=== PATIENT | male | born 1930 | race Hispanic/Latino ===

== ENCOUNTER 2016-08-24 11:34 | Inpatient (IN) | payer MEDICARE ==
--- OUTSIDE RECORDS SUMMARY | 2016-08-24 12:07 | XMS REPORT | Continuity of Care Document ---
:1930 Author Organization [facility] ([facility]) Address [address] [place] [address] Phone [phone] Care Team Providers Name Role Phone Unavailable Primary Care Provider Unavailable Source Comments This disclosure is being made pursuant to the Care Everywhere program, applicable federal and state laws, and may not contain all informaitonavailable regarding this patient.[facility] ([facility]) Active Allergies and Adverse Reactions Allergen Noted Date Severity Reactions Comments Cephalosporins Respiratory Distress Current Medications Not on file Active Problems Not on file Social History Tobacco Use Types Packs/Day Years Used Date Never Assessed Last Filed Vital Signs Vital Sign Reading Time Taken Blood Pressure - - Pulse - - Temperature - - Respiratory Rate - - Height - - Weight 77.497 kg (170 lb 13.6 oz) 06/06/1999 2:59 PM [employer]LECT[employer]ER Body Mass Index - - Oxygen Saturation - - Plan of Care Health Maintenance Due Date Last Done Comments Hepatitis B Vaccine (1 of 3 - Primary 1929 Series) Tdap Vaccine 1940 Td Vaccine 09/13/1947 Zoster Vaccine 1989 Pneumococcal Vaccine (1 of 2 - PCV13) 1994 Lipid Disorder Screening 11/10/2003 11/09/1998, 09/21/1998 Influenza Vaccine: Seasonal (#1) 10/29/2015 Results from Last 3 Months Not on file
--- NOTE | 2016-08-24 12:09 | ERNOTE ---
Medical Problem HPI - General Chief Complaint: General Assessment Time Seen by Provider: 08/24/16 11:56 Source: patient Exam Limitations: no limitations - Immun/Allergies/Home Medications Immunizations: IMMUNIZATION HX Immunizations Up to Date Yes History of Influenza Vaccine No Hx Pneumococcal Vaccination No Allergies/Adverse Reactions: Allergies Cephalosporins Allergy (Severe, Verified 08/24/16 11:46) Anaphylaxis Penicillins Allergy (Severe, Verified 08/24/16 11:46) Anaphylaxis Home Medications: HOME MEDICATIONS metFORMIN HCL [Metformin HCl ER] 1,000 mg PO DAILY 08/24/16 [Last Taken Unknown] - History of Present History Narrative: Patient states that for about three days both his testicles have been swollen and tender. He denies any injury. He denies any acute urinary symptoms, has some chronic in creased frequency and dysuria, never had similar symptoms Review of Systems - Review of Systems Constitutional: Absent: recent illness, fever Respiratory: Absent: shortness of breath Cardiology: Absent: chest pain Gastrointestinal/Abdominal: Absent: nausea, vomiting, abdominal pain Genitourinary: Present: See HPI Musculoskeletal: Absent: back pain Neurological: Absent: headache - Patient's Past Medical History Patient History - Medical: Diabetes Type 2 Patient History - Cardiac/Respiratory: No pertinent hx Patient History - Cancer: No Hx of Cancer Patient History - Surgical Procedures: Hernia Repair Patient History - Other: None - Social History Living Situations: home Abuse History: No History of abuse Psych History: No pertinent hx Smoking Status: Former smoker Alcohol Use: heavy Drug Use: none - Immunizations Immunizations Up to Date: Yes Hx Pneumococcal Vaccination: No History of Influenza Vaccine: No Physical Exam - Physical Exam General Appearance: Present: wd/wn, alert, no apparent distress Respiratory: Present: no respiratory distress, normal breath sounds, no accessory muscle use, lungs clear Cardiovascular/Chest: Present: regular rate, rhythm, no murmur Gastrointestinal/Abdominal: Present: nontender, nondistended, soft Male Genitals Exam: Present: scrotum tenderness (R), scrotum tenderness (L), other - bilateral testicles and epididymis erythemaous, enlarged and tender, no skin changes (except erythema), no inguinal lymphnodes Back Exam: Present: no CVA tenderness Neurological Exam: Present: alert, oriented, normal mood/affect Skin Exam: Present: normal color, warm/dry ED Progress - Results and Orders Patient's Lab Results:: I have reviewed the patient's lab results. - Vital Signs Patient's Vital Signs:: I have reviewed the patient's vital signs. Vital Signs: Vital Signs 08/24/16 11:41 Temperature 37.6 C H Pulse Rate 103 H Respiratory 16 Rate Blood Pressure 141/73 O2 Sat by Pulse 98 Oximetry - CT/Ultrasound CT/Ultrasound Narrative: testicular U/S: Impression: No intratesticular mass. No evidence of torsion. No discrete evidence of epididymoorchitis. Suggestion of scrotal swelling with increased vascular flow. Findings could be secondary to underlying infection or inflammation. No obvious subcutaneous emphysema. - Progress/Reassessment Chief Complaint: General Assessment Progress Note-Subjective: 08/24/16 12:20 discussed pain medication, patient only wants to take tylenol at this point 08/24/16 14:15 discussed results with patient and son, patient states that he is very comfortable after taking tylenol, still problems with sitting down 08/24/16 14:16 discussed with nuris Ross to admit for observation Departure - Departure Clinical Impression: Orchitis [facility] Condition: Good Referrals: Willie Rios MD [Primary Care Provider] -
[2016-08-24 12:18] LABS: Hemoglobin 14.1 gm/dL (13.5-18.0); Mean Cell Volume 88.2 fl (78-100); Mean Corpuscular Hemoglobin 30.3 pg (27-31); Mean Corpuscular Hgb Conc 34.4 g/dl (32-36); Mean Platelet Volume 10.4 fl (6.0-9.5); Neutrophil % 75.1 % (42-75.0); Platelet Count 215 K/mm3 (150-450); Red Blood Count 4.65 M/mm3 (4.7-6.0); White Blood Count 13.3 K/mm3 (4.0-10.5)
[2016-08-24] MEDS ORDERED: ACETAMINOPHEN 325 MG TABLET ONE (12:24)
[2016-08-24] MEDS ORDERED: ACETAMINOPHEN 325 MG TABLET PO ONE (12:24)
[2016-08-24 12:25] LABS: Urine Appearance Cloudy; Urine Bilirubin Negative (NEGATIVE); Urine Color Yellow; Urine Ketone Negative (NEGATIVE)
[2016-08-24 12:26] LABS: Urine Blood 10 /ul (NEGATIVE); Urine Nitrite Positive (NEGATIVE); Urine Protein 30 mg/dL (NEGATIVE); Urine Urobilinogen Normal (NORMAL)
[2016-08-24 12:27] LABS: Urine Bacteria 4+; Urine RBC 0-5 /hpf (0-5); Urine WBC >50 /hpf (0-5)
[2016-08-24 12:30] LABS: Albumin * 3.3 gm/dl (3.4-5.0); Anion Gap 15.4 mmol/L (6.8-13.8); BUN/Creatinine Ratio 15.3 (9.0-21.6); Bilirubin, Total 0.7 mg/dL (0.0-1.1); Ca. Corrected For Albumin 9.2 mg/dL (8.4-10.2); Carbon Dioxide 24.4 mmol/L (24-32.6); Potassium 3.8 mmol/L (3.4-4.6); Total Protein 7.4 gm/dL (6.2-8.2)
[2016-08-24 12:32] LABS: CRP 13.4 mg/dL (0.0-0.9)
[2016-08-24] MEDS ORDERED: LEVOFLOXACIN/D5W 500 MG/100 ML BAG IV SCH (12:45)
--- OUTSIDE RECORDS SUMMARY | 2016-08-24 14:32 | XMS REPORT | Continuity of Care Document ---
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
[2016-08-24] MEDS ORDERED: MORPHINE SULFATE 2 MG/ML DISP.SYRIN IV PRN (14:35)
[2016-08-24] MEDS ORDERED: ONDANSETRON HCL/PF 2 MG/ML VIAL IV PRN (14:35)
[2016-08-24] MEDS ORDERED: oxyCODONE HCL/ACETAMINOPHEN 1 TAB TABLET PO PRN (14:35)
[2016-08-24] MEDS ORDERED: ACETAMINOPHEN 500 MG TABLET PO PRN (14:35)
[2016-08-24 15:18] LABS: INR 0.96 INR (0.90-1.10); Partial Thrombolplastin Time 30.1 Seconds (24-32)
[2016-08-24] MEDS ORDERED: LEVOFLOXACIN/D5W 250 MG/50 ML BAG IV ONE (15:30)
[2016-08-24] MEDS ORDERED: IBUPROFEN 600 MG TABLET PO PRN (15:56)
[2016-08-24] MEDS ORDERED: MULTIVIT INFUSN,ADULT 4,VIT K 10 ML, THIAMINE HCL 100 MG in NORMAL SALINE 1,000 ML IV ONE (16:04)
[2016-08-24] MEDS ORDERED: LORazepam 2 MG/ML DISP.SYRIN IV PRN ×3 (16:04)
[2016-08-24] MEDS: FOLIC ACID 1 MG TABLET PO SCH (16:22)
[2016-08-24] MEDS: THIAMINE HCL 100 MG TABLET PO SCH (16:22)
--- NOTE | 2016-08-24 16:39 | HP ---
Chief Complaint - Chief Complaint Date of Service: 08/24/16 Time of Service: 15:15 Chief Complaint: scrotal pain History of Present Illness: Phuc is an 85 year old patient of Dr. Rios with a PMH of DM, HTN and etoh abuse who presented to the ER with c/o scrotal pain and swelling for 3 days. denies recent URI. denies headache. no recent travel out of the country. believes he is up to date on his vaccines. fever 37.6. wbc elevated at 14.1 with 75.1 neutrophils. bmp unremarkable except glucose elevated at 223. UA positive for protein, glucose, nitrate, 500 leuk esterase, >50 wbc with +4 bacteria. crp elevated at 13.4. scrotal US significant for mod rt and sm lt hydroceles, bilat varioceles, scrotal swelling, no abscess, no subcutaneous emphysema, no torsion, no epididymoorchitis. Patient admitted for UTI and scrotal pain / swelling. Further evaluation revealed normal lactic acid, normal procalcitonin. ESR significantly elevated at 62. PT/PTT wnl. - Patient's Past Medical History Patient History - Medical: Diabetes Type 2 Patient History - Cardiac/Respiratory: Hypertension Patient History - Cancer: No Hx of Cancer Patient History - Surgical Procedures: Hernia Repair Patient History - Other: None - Social History Living Situations: home Abuse History: No History of abuse Psych History: No pertinent hx Smoking Status: Former smoker Have you smoked in the past 12 months: No Alcohol Use: heavy Drug Use: none - Immunizations Immunizations Up to Date: Yes Hx Pneumococcal Vaccination: No History of Influenza Vaccine: No Review Of Systems (GEN) - Review of Systems Generalized/Overall Review: Present: Fever, Malaise EENTM: Present: No Symptoms Reported Respiratory: Present: No Symptoms Reported Cardiac: Present: No Symptoms Reported Abdominal: Present: No Symptoms Reported Genitourinary: Present: Burning, Urgency, Frequency, Dribbling, Dysuria, Other - scrotal swelling Musculoskeletal: Present: No Symptoms Reported Neurological: Present: No Symptoms Reported Skin: Present: No Symptoms Reported Endocrine: Present: No Symptoms Reported Misc: All systems neg except as marked Immunizations: IMMUNIZATION HX Immunizations Up to Date Yes History of Influenza Vaccine No Hx Pneumococcal Vaccination No Allergies/Adverse Reactions: Allergies Allergy/AdvReac Type Severity Reaction Status Date / Time Cephalosporins Allergy Severe Anaphylaxis Verified 08/24/16 11:46 Penicillins Allergy Severe Anaphylaxis Verified 08/24/16 11:46 Home Medications: HOME MEDICATIONS Aspirin [Aspirin Enteric Coated] 81 mg PO DAILY 08/24/16 [Last Taken Unknown] Lisinopril [Zestril] 20 mg PO DAILY 08/24/16 [Last Taken Unknown] Simvastatin [Zocor] 10 mg PO HS 08/24/16 [Last Taken Unknown] metFORMIN HCL [Glucophage] 1,000 mg PO BIDWM 08/24/16 [Last Taken Unknown] Exam - Exam Vital Signs: Vital Signs - Last Taken Temp 36.2 C L 08/24/16 14:35 Pulse 84 08/24/16 14:35 Resp 16 08/24/16 14:35 BP 152/78 08/24/16 14:35 Pulse Ox 99 08/24/16 14:35 Constitutional: Present: Alert, Cooperative, No distress ENT Exam: Present: hearing grossly normal, other - no parotid swelling noted Eye Exam: bilateral eye: normal inspection Neck: Present: full range of motion, supple Back Exam: Present: normal inspection, no vertebral tenderness Breasts: Present: Exam deferred Respiratory: Present: lungs clear, normal breath sounds, no respiratory distress , no accessory muscle use Cardiovascular/Chest: Present: regular rate, rhythm - with occasional premature beat heard, no chest tenderness Peripheral Pulses: carotid (R): 2+, carotid (L): 2+, dorsalis-pedis (R): 0 - this is a chronic finding, dorsalis-pedis (L): 0 - this is a chronic finding, radial (R): 2+, radial (L): 2+ Abdomen: Present: Normal bowel sounds, soft, nontender, nondistended Extremity: Present: normal range of motion, non-tender, normal inspection Skin Exam: Present: normal color, warm/dry, no cyanosis Diagnostic Studies: Abnormal Lab Results 08/24/16 Range/Units 15:00 ESR 62 H (0-10) mm/hr Laboratory Results WBC 13.3 K/mm3 (4.0-10.5) H 08/24/16 12:12 RBC 4.65 M/mm3 (4.7-6.0) L 08/24/16 12:12 Hgb 14.1 gm/dL (13.5-18.0) 08/24/16 12:12 Hct 41.0 % (42.0-52.0) L 08/24/16 12:12 MCV 88.2 fl (78-100) 08/24/16 12:12 MCH 30.3 pg (27-31) 08/24/16 12:12 MCHC 34.4 g/dl (32-36) 08/24/16 12:12 RDW 13.0 % (11.5-14.0) 08/24/16 12:12 Plt Count 215 K/mm3 (150-450) 08/24/16 12:12 MPV 10.4 fl (6.0-9.5) H 08/24/16 12:12 Immature Gran % (Auto) 0.80 % (0.001-0.429) H 08/24/16 12:12 Immature Gran # (Auto) 0.11 K/mm3 (0.000-0.0310) H 08/24/16 12:12 Neutrophils % 75.1 % (42-75.0) H 08/24/16 12:12 Lymphocytes % 8.1 % (20-51) L 08/24/16 12:12 Monocytes % 11.0 % (0.0-9) H 08/24/16 12:12 Eosinophils % 4.5 % (0.0-3.0) H 08/24/16 12:12 Basophils % 0.5 % (0.0-1.0) 08/24/16 12:12 Nucleated RBC % 0.0 k/mm3 (0-1) 08/24/16 12:12 Neutrophils # 10.0 K/mm3 (1.3-6.0) H 08/24/16 12:12 Lymphocytes # 1.1 k/mm3 (1.5-3.5) L 08/24/16 12:12 Monocytes # 1.5 k/mm3 (0.0-1.0) H 08/24/16 12:12 Eosinophils # 0.6 k/mm3 (0.0-0.7) 08/24/16 12:12 Absolute Basophils 0.1 k/mm3 (0.0-0.1) 08/24/16 12:12 ESR 62 mm/hr (0-10) H 08/24/16 15:00 PT 10.0 Seconds (9.4-11.4) 08/24/16 15:00 INR (Anticoag Therapy) 0.96 INR (0.90-1.10) 08/24/16 15:00 PTT (Hart) 30.1 Seconds (24-32) 08/24/16 15:00 Sodium 137 mmol/L (132-142) 08/24/16 12:12 Plasma Sodium 139 mmol/L (130-142) 08/24/16 12:12 Potassium 3.8 mmol/L (3.4-4.6) 08/24/16 12:12 Chloride 101 mmol/L (97-106) 08/24/16 12:12 Carbon Dioxide 24.4 mmol/L (24-32.6) 08/24/16 12:12 Anion Gap 15.4 mmol/L (6.8-13.8) H 08/24/16 12:12 BUN 15 mg/dL (6-23) 08/24/16 12:12 Creatinine 0.98 mg/dL (0.4-1.4) 08/24/16 12:12 Est GFR (Non-Af Amer) 77 mL/min (60-130) 08/24/16 12:12 BUN/Creatinine Ratio 15.3 (9.0-21.6) 08/24/16 12:12 Random Glucose 223 mg/dL (70-110) H 08/24/16 12:12 Lactic Acid, Venous 1.4 mmol/L (0.4-1.9) 08/24/16 15:00 Calcium 9.0 mg/dL (7.9-10.9) 08/24/16 12:12 Calcium Adj for Albumin 9.2 mg/dL (8.4-10.2) 08/24/16 12:12 Total Bilirubin 0.7 mg/dL (0.0-1.1) 08/24/16 12:12 AST 19 U/L (0-48) 08/24/16 12:12 ALT 29 U/L (19-67) 08/24/16 12:12 Alkaline Phosphatase 101 U/L (50-170) 08/24/16 12:12 C-Reactive Prot, Quant 13.4 mg/dL (0.0-0.9) H 08/24/16 12:12 Total Protein 7.4 gm/dL (6.2-8.2) 08/24/16 12:12 Albumin 3.3 gm/dl (3.4-5.0) L 08/24/16 12:12 Procalcitonin 0.11 ng/mL (0.05-0.50) 08/24/16 15:00 Urine Color Yellow 08/24/16 12:16 Urine Appearance Cloudy 08/24/16 12:16 Urine pH 6.0 pH (5.0-7.0) 08/24/16 12:16 Ur Specific [place] 1.020 SP.GR. (1.005-1.030) 08/24/16 12:16 Urine Protein 30 mg/dL (NEGATIVE) H 08/24/16 12:16 Urine Glucose (UA) 100 mg/dL (NEGATIVE) H 08/24/16 12:16 Urine Ketones Negative mg/dL (NEGATIVE) 08/24/16 12:16 Urine Blood 10 /ul (NEGATIVE) H 08/24/16 12:16 Urine Nitrate Positive (NEGATIVE) H 08/24/16 12:16 Urine Bilirubin Negative mg/dl (NEGATIVE) 08/24/16 12:16 Prot Sulfosalicylic Acd 1+ mg/dL (0) 08/24/16 12:16 Urine Urobilinogen Normal EU/dl (NORMAL) 08/24/16 12:16 Ur Leukocyte Esterase 500 /ul (NEGATIVE) H 08/24/16 12:16 Urine RBC 0-5 /hpf (0-5) 08/24/16 12:16 Urine WBC >50 /hpf (0-5) H 08/24/16 12:16 Ur Epithelial Cells None seen /hpf (0-5) 08/24/16 12:16 Urine Bacteria 4+ (NONE) H 08/24/16 12:16 Urine Culture Comments Culture to follow 08/24/16 12:16 Assessment/Plan - Narrative Narrative: UTI - fever with +4 bacteria - LA/procal wnl, no s/s sepsis - Levaquin 750 mg iv daily - Day #1 - urine culture pending - probiotics ordered - recheck labs in the am. scrotal pain / erythema - dx include orchitis vs scrotal skin cellulitis vs other. - no parotid swelling so mumps orchitis unlikely - RN has seen dribbling while admitted. - scrotal erythema significant with large increase in ESR - scrotal US shows scrotal swelling. - no acute abscess, subcutaneous gas or torsion seen on US, however - watch closely for increasing pain or worsening erythema - would need CT to rule out Lisa's gangrene/necrotising fasciitis DM - blood sugar elevated on cmp done in er - continue metformin since lactic acid is not elevated. - accuchecks - sliding scale insulin to cover elevate glucose HTN - vital signs q 4 hours - cont home meds etoh abuse - admits to 6-12 beers a day with 3-4 shots of liquor - last drink was last night - start etoh withdrawl protocol with seizure precautions - oral vitamins ordered - banana bag with NS ordered at 125 ml/hr Code status: Full Code VTE: early ambulation GI proph: protonix po - Assessment/Plan (1) UTI (urinary tract infection) Problem: Acute Qualifiers: Urinary tract infection type: acute cystitis Hematuria presence: with hematuria Qualified Code(s): N30.01 - Acute cystitis with hematuria (2) Scrotal pain Problem: Acute (3) Scrotal erythema Problem: Acute (4) Diabetes Problem: Chronic Qualifiers: Diabetes mellitus type: type 2 Diabetes mellitus complication status: with hyperglycemia Diabetes mellitus nursing home insulin use: without nursing home use Qualified Code(s): E11.65 - Type 2 diabetes mellitus with hyperglycemia (5) HTN (hypertension) Problem: Chronic Qualifiers: Hypertension type: essential hypertension Qualified Code(s): I10 - Essential (primary) hypertension (6) ETOH abuse Problem: Chronic Genitourinary Male HPI - Immun/Aller/Home Medications Immunization: IMMUNIZATION HX Immunizations Up to Date Yes History of Influenza Vaccine No Hx Pneumococcal Vaccination No Allergies/Adverse Reactions: Allergies Allergy/AdvReac Type Severity Reaction Status Date / Time Cephalosporins Allergy Severe Anaphylaxis Verified 08/24/16 11:46 Penicillins Allergy Severe Anaphylaxis Verified 08/24/16 11:46 Home Medications: Ambulatory Orders Medication Instructions Recorded Aspirin [Aspirin Enteric Coated] 81 mg PO DAILY 08/24/16 Lisinopril [Zestril] 20 mg PO DAILY 08/24/16 Simvastatin [Zocor] 10 mg PO HS 08/24/16 metFORMIN HCL [Glucophage] 1,000 mg PO BIDWM 08/24/16 M EXAM - Physical Exam Male Genital Exam: Present: epididymal tenderness - very mild to palpation, erythema - significant erythema to entire scrotal sac, scrotum tenderness (R), scrotum tenderness (L). Absent: urethral discharge
[2016-08-24] MEDS: MULTIVITAMINS 1 CAP CAPSULE PO SCH (16:58)
[2016-08-24] MEDS: INSULIN LISPRO 100 UNITS/ML VIAL SC SCH (17:01)
[2016-08-24] MEDS ORDERED: metFORMIN HCL 500 MG TABLET ONE (17:03)
[2016-08-24] MEDS ORDERED: KETOROLAC TROMETHAMINE 15 MG/ML VIAL IV PRN (18:19)
[2016-08-24] MEDS ORDERED: SIMVASTATIN 20 MG TABLET ONE (20:19)
[2016-08-24] MEDS: SIMVASTATIN 10 MG TABLET PO SCH (20:23)
[2016-08-24] MEDS: SACCHAROMYCES BOULARDII 250 MG CAPSULE PO SCH (20:24)
[2016-08-25 05:38] LABS: Hematocrit 41.3 % (42.0-52.0); Hemoglobin 14.1 gm/dL (13.5-18.0); Mean Cell Volume 89.2 fl (78-100); Mean Corpuscular Hemoglobin 30.5 pg (27-31); Mean Corpuscular Hgb Conc 34.1 g/dl (32-36); Mean Platelet Volume 10.2 fl (6.0-9.5); Neutrophil # 8.8 K/mm3 (1.3-6.0); Neutrophil % 71.9 % (42-75.0); Platelet Count 220 K/mm3 (150-450); Red Blood Count 4.63 M/mm3 (4.7-6.0); Red Cell Distribution Width 13.1 % (11.5-14.0); White Blood Count 12.2 K/mm3 (4.0-10.5)
[2016-08-25 05:46] LABS: Anion Gap 10.9 mmol/L (6.8-13.8); BUN/Creatinine Ratio 16.5 (9.0-21.6); Calcium * 9.1 mg/dL (7.9-10.9); Carbon Dioxide 28.4 mmol/L (24-32.6); Potassium 4.3 mmol/L (3.4-4.6)
[2016-08-25] MEDS: INSULIN LISPRO 100 UNITS/ML VIAL SC SCH ×3 (07:05→16:12)
[2016-08-25] MEDS: PANTOPRAZOLE SODIUM 40 MG TABLET.EC PO SCH (07:09)
[2016-08-25] MEDS: LISINOPRIL 20 MG TABLET PO SCH (08:35)
[2016-08-25] MEDS: MULTIVITAMINS 1 CAP CAPSULE PO SCH (08:35)
[2016-08-25] MEDS: ASPIRIN 81 MG TABLET.DR PO SCH (08:35)
[2016-08-25] MEDS: THIAMINE HCL 100 MG TABLET PO SCH (08:35)
[2016-08-25] MEDS: FOLIC ACID 1 MG TABLET PO SCH (08:35)
[2016-08-25] MEDS: SACCHAROMYCES BOULARDII 250 MG CAPSULE PO SCH ×2 (08:36→20:47)
[2016-08-25] MEDS ORDERED: LEVOFLOXACIN/D5W 500 MG/100 ML BAG IV SCH (12:45)
--- NOTE | 2016-08-25 13:50 | PN ---
Subjective - Date and Time Seen Date: 08/25/16 Time: 10:00 Subjective Narrative: Phuc reports improved pain and swelling. He is able to ambulate better. Urinating without difficulty. Denies fever, chills, n/v. Objective - Vitals Vitals: Last Vital Signs Temp 36.9 C 08/25/16 09:58 Pulse 84 08/25/16 09:58 Resp 20 08/25/16 09:58 BP 153/78 08/25/16 09:58 Pulse Ox 98 08/25/16 09:58 - Abnormal Lab Findings Abnormal Lab Findings: Abnormal Lab Results 08/24/16 08/25/16 08/25/16 Range/Units 15:00 05:30 05:30 WBC 12.2 H (4.0-10.5) K/mm3 RBC 4.63 L (4.7-6.0) M/mm3 Hct 41.3 L (42.0-52.0) % MPV 10.2 H (6.0-9.5) fl Immature Gran % (Auto) 0.90 H (0.001-0.429) % Immature Gran # (Auto) 0.11 H (0.000-0.0310) K/mm3 Lymphocytes % 9.0 L (20-51) % Monocytes % 11.4 H (0.0-9) % Eosinophils % 6.2 H (0.0-3.0) % Neutrophils # 8.8 H (1.3-6.0) K/mm3 Lymphocytes # 1.1 L (1.5-3.5) k/mm3 Monocytes # 1.4 H (0.0-1.0) k/mm3 Eosinophils # 0.8 H (0.0-0.7) k/mm3 ESR 62 H (0-10) mm/hr Random Glucose 229 H (70-110) mg/dL - Exam Constitutional: Present: Alert, Oriented x3, Cooperative ENT Exam: Present: hearing grossly normal Respiratory: Present: lungs clear, normal breath sounds Cardiovascular/Chest: Present: regular rate, rhythm, no murmur Abdomen: Present: Normal bowel sounds, soft, nontender /Rectal: Present: Other - Scrotum swollen, thickened, bilateral testicals enlarged and tender to palpation Skin Exam: Present: other - Scrotum erythematous, swollen, and tissue thickened Assessment/Plan Plan Narrative: UTI present with urine culture growing gram negative marjan. Covered with Levaquin , has secondary orchitis and scrotal cellulitis, also covered with levaquin. Clinically improved today based on decreased pain and improved WBC. However scrotum is still very swollen, erythematous, and painful. Symptoms too significant to discharge to home. Continue management. Due to degree of swelling , pain, and location of infection with scrotal cellulitis, orchitis, and UTI he needs continued monitoring as this could progress into scrotal abscess with potential for necrotizing fasciitis. He will be here greater than 2 midnights for continued antibiotics and close monitoring with potential need for repeat scrotal US or possible pelvic CT. Will change to acute inpatient status. - Problems/Diagnosis (1) Orchitis Problem: Acute (2) UTI (urinary tract infection) Problem: Acute Qualifiers: Urinary tract infection type: acute cystitis Hematuria presence: without hematuria Qualified Code(s): N30.00 - Acute cystitis without hematuria (3) Cellulitis of scrotum Problem: Acute
[2016-08-25] MEDS: SIMVASTATIN 10 MG TABLET PO SCH (20:47)
[2016-08-26 06:01] LABS: Hematocrit 39.2 % (42.0-52.0); Hemoglobin 12.9 gm/dL (13.5-18.0); Mean Cell Volume 89.9 fl (78-100); Mean Corpuscular Hemoglobin 29.6 pg (27-31); Mean Corpuscular Hgb Conc 32.9 g/dl (32-36); Mean Platelet Volume 10.8 fl (6.0-9.5); Neutrophil % 63.4 % (42-75.0); Platelet Count 227 K/mm3 (150-450); Red Blood Count 4.36 M/mm3 (4.7-6.0); White Blood Count 11.1 K/mm3 (4.0-10.5)
[2016-08-26] MEDS: PANTOPRAZOLE SODIUM 40 MG TABLET.EC PO SCH (06:37)
[2016-08-26] MEDS: INSULIN LISPRO 100 UNITS/ML VIAL SC SCH ×3 (06:48→16:39)
[2016-08-26] MEDS ORDERED: HYDROcodone/ACETAMINOPHEN 1 EACH TABLET PO PRN (08:21)
--- NOTE | 2016-08-26 08:29 | PN ---
Subjective - Date and Time Seen Date: 08/26/16 Time: 08:25 Subjective Narrative: still markedly swollen and he still having pain Objective - Review of Systems Generalized/Overall Review: Reports: No Symptoms Reported EENTM: Reports: No Symptoms Reported Respiratory: Reports: No Symptoms Reported Cardiac: Reports: No Symptoms Reported Abdominal: Reports: No Symptoms Reported Genitourinary Symptoms: Reports: Other - Painful and swollen scrotum Neurological: Reports: No Symptoms Reported Skin: Reports: No Symptoms Reported - Vitals Vitals: Last Vital Signs Temp 36.8 C 08/26/16 06:00 Pulse 77 08/26/16 06:00 Resp 18 08/26/16 06:00 BP 103/66 08/26/16 06:00 Pulse Ox 98 08/26/16 06:00 - Abnormal Lab Findings Abnormal Lab Findings: Abnormal Lab Results 08/26/16 Range/Units 05:05 WBC 11.1 H (4.0-10.5) K/mm3 RBC 4.36 L (4.7-6.0) M/mm3 Hgb 12.9 L (13.5-18.0) gm/dL Hct 39.2 L (42.0-52.0) % MPV 10.8 H (6.0-9.5) fl Immature Gran % (Auto) 1.50 H (0.001-0.429) % Immature Gran # (Auto) 0.17 H (0.000-0.0310) K/mm3 Lymphocytes % 13.4 L (20-51) % Monocytes % 12.8 H (0.0-9) % Eosinophils % 8.0 H (0.0-3.0) % Neutrophils # 7.0 H (1.3-6.0) K/mm3 Monocytes # 1.4 H (0.0-1.0) k/mm3 Eosinophils # 0.9 H (0.0-0.7) k/mm3 - Exam Constitutional: Present: Alert, Oriented x3, Cooperative ENT Exam: Present: normal ENT inspection Respiratory: Present: lungs clear Cardiovascular/Chest: Present: regular rate, rhythm Abdomen: Present: soft, nontender /Rectal: Present: Other - Bilateral markedly swollen and tender scrotum. Markedly swollen penis Skin Exam: Present: normal color Appearance: Present: appropriate appearance Assessment/Plan Plan Narrative: Will obtain urology consultation and continue current antibiotic - Problems/Diagnosis (1) Cellulitis of scrotum Problem: Acute (2) Orchitis Problem: Acute (3) Diabetes Problem: Chronic Qualifiers: Diabetes mellitus type: type 2 Diabetes mellitus complication status: with hyperglycemia Diabetes mellitus vice squad police officer insulin use: without vice squad police officer use Qualified Code(s): E11.65 - Type 2 diabetes mellitus with hyperglycemia
[2016-08-26] MEDS: THIAMINE HCL 100 MG TABLET PO SCH (08:41)
[2016-08-26] MEDS: ASPIRIN 81 MG TABLET.DR PO SCH (08:41)
[2016-08-26] MEDS: MULTIVITAMINS 1 CAP CAPSULE PO SCH (08:41)
[2016-08-26] MEDS: SACCHAROMYCES BOULARDII 250 MG CAPSULE PO SCH ×2 (08:41→20:27)
[2016-08-26] MEDS: LISINOPRIL 20 MG TABLET PO SCH (08:41)
[2016-08-26] MEDS: FOLIC ACID 1 MG TABLET PO SCH (08:42)
[2016-08-26] MEDS ORDERED: LEVOFLOXACIN/D5W 750 MG/150 ML BAG IV SCH ×2 (14:00→16:00)
[2016-08-26] MEDS: SIMVASTATIN 10 MG TABLET PO SCH (20:27)
--- NOTE | 2016-08-27 06:19 | CONS ---
HPI - General Narrative: [employer]: Dr. Rios Reason: Recommendation regarding orchitis 85-year-old diabetic male, uncircumcised history of some alcohol abuse with low- grade temperature and severe bilateral scrotal pain and swelling started earlier in the week. Urinalysis consistent with infection. Blood sugars a bit elevated. Started on Levaquin to which culture susceptibility has been proven. I am consult to do assess and make further recommendations. He has improved over the last several days still a bit sore. Ultrasound was obtained revealed some subcutaneous tissue thickening but no focal abscess. He did have some redness but that has since resolved. There has been some swelling of the foreskin and the scrotum with the symptomatology. All in all he feels he is heading in the right direction. Denies any pre-existing urinary trouble. Has had some surgeries at the [facility] and stated if he needs surgery he would like to go there. Creatinine history: 08/13 0.91 2017 urine culture: Escherichia coli susceptible to everything except ampicillin /Unasyn. Patient has penicillin/cephalosporin reported allergy. Location: Scrotum Duration: Days Severity/Stage: Was severe now mild to moderate Associated Sx's: Voiding well, pain improving, swelling improving Modifying factors: Better on antibiotics Quality: More of a dull ache, worse with palpation Past medical history: Includes diabetes Past surgical history: Hernia repair Family history: Noncontributory Social history: Former smoker has not smoked in a long time Review of systems: General: No current fevers or chills but he did have some low-grade temperature when the pain started Lungs: No SOB Heart: No chest pain GI: No diarrhea, no constipation Endocrine: Diabetic for 30 years but reports well-controlled : No pre-existing obstructive symptomatology. Some nocturia and irritative symptomatology a baseline. With the infection definitely noticed worsening in symptoms. 14 point review of systems otherwise negative, important positives noted - History of Present Illness Allergies/Adverse Reactions: Allergies Cephalosporins Allergy (Severe, Verified 08/24/16 11:46) Anaphylaxis Penicillins Allergy (Severe, Verified 08/24/16 11:46) Anaphylaxis Home Medications: Home Medications Medication Instructions Recorded Last Taken Aspirin [Aspirin Enteric Coated] 81 mg PO DAILY 08/24/16 Unknown Lisinopril [Zestril] 20 mg PO DAILY 08/24/16 Unknown Simvastatin [Zocor] 10 mg PO HS 08/24/16 Unknown metFORMIN HCL [Glucophage] 1,000 mg PO BIDWM 08/24/16 Unknown - Patient's Past Medical History Patient History - Medical: Diabetes Type 2 Patient History - Cardiac/Respiratory: Hypertension Patient History - Cancer: No Hx of Cancer Patient History - Surgical Procedures: Hernia Repair Patient History - Other: None - Social History Living Situations: home Abuse History: No History of abuse Psych History: No pertinent hx Smoking Status: Former smoker Have you smoked in the past 12 months: No Alcohol Use: heavy Drug Use: none - Immunizations Immunizations Up to Date: Yes Hx Pneumococcal Vaccination: No History of Influenza Vaccine: No Procedures MYOTOMY (12/24/09) Medications - Medications Current Medications: Current Medications Aspirin (Aspirin Enteric Coated) 81 mg PO DAILY REPLACED BY [facility] Stop: 09/24/16 09:01 Last Admin: 08/26/16 08:41 Dose: 81 mg Folic Acid (Folic Acid) 1 mg PO DAILY SUZANNA Stop: 09/23/16 16:16 Last Admin: 08/26/16 08:42 Dose: 1 mg Levofloxacin/Dextrose (Levaquin) 750 mg in 150 mls @ 100 mls/hr IV Q48H REPLACED BY [facility] PRN Reason: Protocol Stop: 09/25/16 14:01 Last Infusion: 08/26/16 15:38 Dose: Infused Insulin Human Lispro (Humalog) 0 units SC ACINS REPLACED BY [facility] PRN Reason: Protocol Stop: 09/23/16 17:01 Last Admin: 08/26/16 16:39 Dose: 4 units Lisinopril (Zestril) 20 mg PO DAILY SUZANNA Stop: 09/24/16 09:01 Last Admin: 08/26/16 08:41 Dose: 20 mg Metformin HCl (Glucophage) 1,000 mg PO BIDWM REPLACED BY [facility] Stop: 09/23/16 17:01 Last Admin: 08/26/16 16:39 Dose: 1,000 mg Pantoprazole Sodium (Protonix) 40 mg PO DAILY@0700 REPLACED BY [facility] Stop: 09/24/16 07:01 Last Admin: 08/26/16 06:37 Dose: 40 mg Saccharomyces Boulardii (Florastor) 250 mg PO BID REPLACED BY [facility] Stop: 09/23/16 21:01 Last Admin: 08/26/16 20:27 Dose: 250 mg Simvastatin (Zocor) 10 mg PO HS REPLACED BY [facility] Stop: 09/23/16 21:01 Last Admin: 08/26/16 20:27 Dose: 10 mg Thiamine HCl (Vitamin B-1) 100 mg PO DAILY REPLACED BY [facility] Stop: 09/23/16 16:16 Last Admin: 08/26/16 08:41 Dose: 100 mg Physical Examination - Exam Narrative: General: Nontoxic, not in acute distress currently Psych: Alert and oriented HEENT: EOM grossly intact Lungs: Respirations unlabored, clear Abdomen: Thin, benign Neuro: No focal deficits, moves a bit slowly Extremities: Moves all 4 without difficulty Heart: Regular Skin: No obvious rashes Back: No CVA tenderness Genital: Uncircumcised phallus, there is edema but overall the foreskin looks healthy not inflamed. There is reactive soft tissue swelling in the scrotum but no evidence of active cellulitis or Lisa's. No evidence of abscess. Both testicles are firm and likely involved by orchitis. Left testicle more tender than right. Patient states size is much decreased compared to admission i.e. heading in right direction. Obviously cannot assess for mass Vital Signs: Vital Signs - Last Taken Temp 97.5 F L 08/27/16 06:10 Pulse 82 08/27/16 06:10 Resp 20 08/27/16 06:10 BP 130/70 08/27/16 06:10 Pulse Ox 92 08/27/16 06:10 O2 Oxygen Delivery Method Room Air - Results and Findings: Narrative: #1 UTI with associated severe epididymoorchitis: Based on labs and exam today and patient's symptomatology I think he is starting to turn the corner. He received a single dose of vancomycin as I was worried initially based on the ultrasound about potential skin infection as well which does not appear to be the case. Vancomycin was discontinued. Levaquin is an excellent agent but it will take at least 2 if not 3 weeks of antibiotics to get back to normal. I still think he would benefit from continued IV for now. Would love single dose of gentamicin 80 mg 1 for some synergy. He is older and this some potential risk. Would like to wait until tomorrow given the dose of vancomycin today. Would check creatinine prior. If no further fevers can transition to oral therapy tomorrow or Thursday. Should get a full 2 weeks of additional Levaquin at 500 mg daily from discharge. I will see him in the office next Thursday to examine make sure doing okay. #2 possible underlying BPH with obstruction: Would treat empirically with Flomax and Proscar just to be safe. Not sure why he got to UTI but if BPH on board with incomplete emptying would explain other possibility is diabetes in an uncircumcised male. I have no pre-orchitis imaging to assess residual or prostate but will obtain ultrasound retroperitoneal pre-and post void at follow- up as well. Lab/Microbiology results last 24 hrs: Abnormal/Pending Laboratory Last 24 HRS 08/26/16 08/26/16 08/26/16 05:05 05:05 05:05 ESR 60 H Hemoglobin A1c 7.0 H C-Reactive Prot, Quant 11.5 H
[2016-08-27] MEDS: INSULIN LISPRO 100 UNITS/ML VIAL SC SCH ×3 (06:31→16:45)
[2016-08-27] MEDS: PANTOPRAZOLE SODIUM 40 MG TABLET.EC PO SCH (06:32)
--- NOTE | 2016-08-27 08:28 | PN ---
Subjective - Date and Time Seen Date: 08/27/16 Time: 08:20 Subjective Narrative: I am covering for Dr. Rios this morning. Patient feeling better. He says his scrotum is still swollen but not as painful anymore. Afebrile. Objective - Review of Systems Generalized/Overall Review: Denies: Chills, Fever EENTM: Reports: No Symptoms Reported Respiratory: Denies: Cough, Shortness of Breath Cardiac: Denies: Chest Pain, Palpitations Abdominal: Denies: Nausea, Vomiting Genitourinary Symptoms: Reports: Other - scrotal discomfort/swelling-improved. Denies: Urgency, Frequency Musculoskeletal Complaints: Denies: Joint Pain - Vitals Vitals: Last Vital Signs Temp 36.4 C L 08/27/16 06:10 Pulse 82 08/27/16 06:10 Resp 20 08/27/16 06:10 BP 130/70 08/27/16 06:10 Pulse Ox 92 08/27/16 06:10 - Abnormal Lab Findings Abnormal Lab Findings: Abnormal Lab Results 08/26/16 08/26/16 08/26/16 Range/Units 05:05 05:05 05:05 ESR 60 H (0-10) mm/hr Hemoglobin A1c 7.0 H (4.00-6.0) % C-Reactive Prot, Quant 11.5 H (0.0-0.9) mg/dL - Exam Constitutional: Present: Alert, Oriented x3, Cooperative ENT Exam: Present: hearing grossly normal Neck: Present: full range of motion Breasts: Present: Exam deferred Respiratory: Present: normal breath sounds, No rales, No wheezing Cardiovascular/Chest: Present: regular rate, rhythm, no JVD, no murmur Abdomen: Present: Normal bowel sounds, soft, nontender Extremity: Present: no calf tenderness, pedal edema Assessment/Plan - Problems/Diagnosis (1) Orchitis Problem: Acute Narrative: Urology consulted. Vanco IV started. (2) Scrotal pain Problem: Acute Narrative: siginificantly improved (3) UTI (urinary tract infection) Problem: Acute Qualifiers: Urinary tract infection type: acute cystitis Hematuria presence: without hematuria Qualified Code(s): N30.00 - Acute cystitis without hematuria Narrative: E.Coli UTI on Levaquin. (4) Diabetes Problem: Chronic Qualifiers: Diabetes mellitus type: type 2 Diabetes mellitus complication status: with hyperglycemia Diabetes mellitus senior living insulin use: without senior living use Qualified Code(s): E11.65 - Type 2 diabetes mellitus with hyperglycemia (5) HTN (hypertension) Problem: Chronic Qualifiers: Hypertension type: essential hypertension Qualified Code(s): I10 - Essential (primary) hypertension
[2016-08-27] MEDS: THIAMINE HCL 100 MG TABLET PO SCH (08:36)
[2016-08-27] MEDS: MULTIVITAMINS 1 CAP CAPSULE PO SCH (08:36)
[2016-08-27] MEDS: FOLIC ACID 1 MG TABLET PO SCH (08:36)
[2016-08-27] MEDS: LISINOPRIL 20 MG TABLET PO SCH (08:36)
[2016-08-27] MEDS: ASPIRIN 81 MG TABLET.DR PO SCH (08:36)
[2016-08-27] MEDS: SACCHAROMYCES BOULARDII 250 MG CAPSULE PO SCH ×2 (08:36→21:23)
[2016-08-27] MEDS ORDERED: VANCOMYCIN HCL 1.25 GM in DEXTROSE 5 % IN WATER 250 ML IV SCH ×2 (09:00)
[2016-08-27] MEDS ORDERED: TAMSULOSIN HCL 0.4 MG CAP.SR.24H PO SCH (18:00)
[2016-08-27] MEDS: SIMVASTATIN 10 MG TABLET PO SCH (21:23)
[2016-08-28 05:35] LABS: Hematocrit 37.8 % (42.0-52.0); Hemoglobin 12.8 gm/dL (13.5-18.0); Mean Cell Volume 89.4 fl (78-100); Mean Corpuscular Hemoglobin 30.3 pg (27-31); Mean Corpuscular Hgb Conc 33.9 g/dl (32-36); Neutrophil # 4.6 K/mm3 (1.3-6.0); Neutrophil % 56.5 % (42-75.0); Platelet Count 264 K/mm3 (150-450); Red Blood Count 4.23 M/mm3 (4.7-6.0); Red Cell Distribution Width 12.9 % (11.5-14.0); White Blood Count 8.2 K/mm3 (4.0-10.5)
[2016-08-28 05:49] LABS: Anion Gap 11.8 mmol/L (6.8-13.8); BUN/Creatinine Ratio 26.9 (9.0-21.6); Carbon Dioxide 28.6 mmol/L (24-32.6); Estimated Creat Clear 37.9; Potassium 4.4 mmol/L (3.4-4.6)
[2016-08-28] MEDS: PANTOPRAZOLE SODIUM 40 MG TABLET.EC PO SCH (07:03)
[2016-08-28] MEDS: INSULIN LISPRO 100 UNITS/ML VIAL SC SCH ×2 (07:04→12:02)
--- NOTE | 2016-08-28 08:38 | DS ---
(1) Cellulitis of scrotum Problem: Acute (2) Orchitis Problem: Acute (3) Diabetes Problem: Chronic Qualifiers: Diabetes mellitus type: type 2 Diabetes mellitus complication status: with hyperglycemia Diabetes mellitus intermediate insulin use: without intermediate use Qualified Code(s): E11.65 - Type 2 diabetes mellitus with hyperglycemia (4) UTI (urinary tract infection) Problem: Acute Qualifiers: Urinary tract infection type: acute cystitis Hematuria presence: without hematuria Qualified Code(s): N30.00 - Acute cystitis without hematuria Description of Stay: 85 years old [place] descent male was admitted because of pain and swelling of the scrotum. Urine culture grew Escherichia coli sensitive to Levaquin. He was given IV Levaquin during his stay pain and swelling markedly improved. He will roll GI consultation was obtained from Dr. Hendricks and he recommended for him to receive IV gentamicin prior to discharge and he will continue to follow up with him as an outpatient basis Procedures Performed: none Discharge Disposition: Home self care Disposition: Home self-care Condition: Good Discharge Activity: Activity as tolerated Discharge Diet: Consistent carbs Problem Oriented Discharge Instructions to Patient/Family: Orchitis Prescriptions (Any new or edited meds): Finasteride [Proscar] 5 mg PO DAILY #30 tablet Levofloxacin/D5w [Levaquin] 500 mg PO DAILY #14 Tamsulosin HCl [Flomax] 0.4 mg PO DAILY@1800 #30 cap.sr.24h Complete Home Medications List: Complete Home Medication List: Aspirin [Aspirin Enteric Coated] 81 mg PO DAILY 08/24/16 Lisinopril [Zestril] 20 mg PO DAILY 08/24/16 Simvastatin [Zocor] 10 mg PO HS 08/24/16 metFORMIN HCL [Glucophage] 1,000 mg PO BIDWM 08/24/16 Acetaminophen [Tylenol] 650 mg PO Q4H PRN #0 tablet 08/28/16 Finasteride [Proscar] 5 mg PO DAILY #30 tablet 08/28/16 Levofloxacin/D5w [Levaquin] 500 mg PO DAILY #14 08/28/16 Tamsulosin HCl [Flomax] 0.4 mg PO DAILY@1800 #30 cap.sr.24h 08/28/16
[2016-08-28] MEDS ORDERED: FINASTERIDE 5 MG TABLET PO SCH (09:00)
[2016-08-28] MEDS: ASPIRIN 81 MG TABLET.DR PO SCH (09:28)
[2016-08-28] MEDS: MULTIVITAMINS 1 CAP CAPSULE PO SCH (09:28)
[2016-08-28] MEDS: LISINOPRIL 20 MG TABLET PO SCH (09:29)
[2016-08-28] MEDS: SACCHAROMYCES BOULARDII 250 MG CAPSULE PO SCH (09:29)
[2016-08-28] MEDS: THIAMINE HCL 100 MG TABLET PO SCH (09:29)
[2016-08-28] MEDS: FOLIC ACID 1 MG TABLET PO SCH (09:29)
[2016-08-28 09:52] VITALS: BP 136/67
[2016-08-28] MEDS ORDERED: GENTAMICIN SULFATE 80 MG in DEXTROSE 5 % IN WATER 100 ML IV ONE ×2 (10:00)
== END 2016-08-28 13:17 | disposition home or self-care (01) | DRG 728 ==
LOC: ER 11:34 → MS 14:29 → OBSVTOIN 14:29
PROVIDERS: ADMIT Nurse Practitioner Critical Care Medicine; ATTEND Internal Medicine
PROC: HZ2ZZZZ Detoxification Services for Substance Abuse Treatment (ICD-10-PCS; principal; 2016-08-24)
DX: N45.2 Orchitis (principal); N30.00 Acute cystitis without hematuria; E11.65 Type 2 diabetes mellitus with hyperglycemia; B96.20 Unspecified Escherichia coli [E. coli] as the cause of diseases classified elsewhere; N49.2 Inflammatory disorders of scrotum; F10.10 Alcohol abuse, uncomplicated; I10 Essential (primary) hypertension